=== PATIENT | female | born 1975 | race Caucasian/White ===

== ENCOUNTER 2019-11-09 19:11 | Emergency (ER) | payer MEDICAID ==
[~2019-11-09] VITALS: Ht 157.5 cm; Wt 68.0 kg
[2019-11-09 19:15] VITALS: BP_SYST 133
--- NOTE | 2019-11-09 19:15 | NUR ---
Patient triaged and placed in waiting room. VSS and patient appears in no acute distress at this time. Accompanied by FAM MEMBER, awaiting available bed, and MD notified of need for MSE.
--- NOTE | 2019-11-09 20:23 | NUR ---
Patient to ER bed 6 to gown for evaluation. Side rails up. Report given to Rose PAGAN.
--- NOTE | 2019-11-09 20:25 | NUR ---
PT IS ALERT AND ORIENTED. PT C/O COUGH X 5 DAYS, DENIES PAIN, BODYACHES ,N, V, ABD PAIN AT THIS TIME. VSS. WILL CONTINUE TO MONITOR.
--- NOTE | 2019-11-09 20:34 | NUR ---
ER MD PATHAK AT BEDSIDE EXAMINING PATIENT.
[2019-11-09 21:02] LABS: BASOPHILS % (AUTO) 0.6 % (0.0-2.0); EOSINOPHILS # (AUTO) 0.3 K/uL (0.0-0.4); EOSINOPHILS % (AUTO) 3.4 % (0.0-4.0); HEMATOCRIT 26.9 % (36-48); HEMOGLOBIN 8.4 g/dL (12.0-16.0); LYMPHOCYTES # (AUTO) 1.4 K/uL (1.0-5.5); LYMPHOCYTES % (AUTO) 18.1 % (20.5-51.5); MEAN CORPUSCULAR HEMOGLOBIN 20 pg (27-31); MEAN CORPUSCULAR HGB CONC 31 % (32-36); MEAN CORPUSCULAR VOLUME 64 fL (79.0-98.0); MONOCYTES # (AUTO) 0.6 K/uL (0.0-1.0); MONOCYTES % (AUTO) 7.8 % (1.7-9.3); NEUTROPHILS # (AUTO) 5.4 K/uL (1.8-7.7); NEUTROPHILS % (AUTO) 70.1 % (40.0-70.0); PLATELET COUNT (AUTO) 364 K/uL (130-430); RED BLOOD CELL COUNT(AUTO) 4.22 MIL/uL (4.2-6.2); RED CELL DISTRIBUTION WIDTH 19.2 % (9.0-15.0); WHITE BLOOD COUNT (AUTO) 7.7 K/uL (4.8-10.8)
[2019-11-10 00:50] VITALS: BP_SYST 130
--- NOTE | 2019-11-10 00:50 | NUR ---
Patient given written and verbal discharge instructions and verbalizes understanding. ER MD discussed with patient the results and treatment provided. Patient in stable condition. ID arm band removed. No IV Rx of Cheratussin and Zithromax given. Patient educated on pain management and to follow up with PMD. Pain Scale 0/10. Opportunity for questions provided and answered. Medication side effect fact sheet provided.
== END 2019-11-10 00:50 | disposition home or self-care (01) ==
LOC: SED 19:11
DX: J40 Bronchitis, not specified as acute or chronic (principal); Z88.0 Allergy status to penicillin
CPT/HCPCS: 36415; 71045; 85025; 86710; 99284

== ENCOUNTER 2021-10-19 14:10 | Emergency (ER) | payer MEDICAID ==
[~2021-10-19] VITALS: Ht 157.5 cm; Wt 63.5 kg
[2021-10-19 14:15] VITALS: BP_SYST 109
--- NOTE | 2021-10-19 14:24 | NUR ---
sent to [facility]
[2021-10-19] MEDS ORDERED: CEPH-548 PO (15:16)
--- NOTE | 2021-10-19 15:45 | NUR ---
examined by dr. anthony
--- NOTE | 2021-10-19 16:05 | NUR ---
Patient given written and verbal discharge instructions and verbalizes understanding. ER MD discussed with patient the results and treatment provided. Patient in stable condition. ID arm band removed. Rx of keflex given. Patient educated on pain management and to follow up with PMD. Pain Scale 0/10. Opportunity for questions provided and answered. Medication side effect fact sheet provided.
[2021-10-19 16:09] VITALS: BP_SYST 109
== END 2021-10-19 16:05 | disposition home or self-care (01) ==
LOC: SED 14:10
DX: T21.12XA Burn of first degree of abdominal wall, initial encounter (principal); L03.311 Cellulitis of abdominal wall; Z88.0 Allergy status to penicillin; Z79.899 Other long term (current) drug therapy; X19.XXXA Contact with other heat and hot substances, initial encounter; Y93.89 Activity, other specified; Y92.89 Other specified places as the place of occurrence of the external cause; Y99.8 Other external cause status
CPT/HCPCS: 99283

== ENCOUNTER 2021-12-18 16:59 | Emergency (ER) | payer SELFPAY ==
[~2021-12-18] VITALS: Ht 157.5 cm; Wt 68.0 kg
[~2021-12-18 16:59] MED LIST: CEPH-548 PO
[2021-12-18 17:00] VITALS: BP_SYST 106
--- NOTE | 2021-12-18 17:00 | NUR ---
Patient triaged and placed in waiting room. VSS and patient appears in no acute distress at this time. Accompanied by SELF, awaiting available bed, and MD notified of need for MSE.
--- NOTE | 2021-12-18 19:40 | NUR ---
Pt brought self in from home due to chest discomfort accompanied by SOB x3 days. Pt states she gets SOB while going up and down the stairs. She also reports L ear ache that started x2 days ago. Denies any medical history. Appears in no distress at this time. o2 sat @ 100 % on RA. VSS stable.
[2021-12-18] MEDS ORDERED: LORA10TA7 PO (20:17)
[2021-12-18] MEDS ORDERED: IBUP-1969 PO (20:17)
[2021-12-18] MEDS ORDERED: AZIT-93 PO (20:17)
[2021-12-18 20:24] VITALS: BP_SYST 110
--- NOTE | 2021-12-18 20:26 | NUR ---
Patient given written and verbal discharge instructions and verbalizes understanding. ER MD [place] discussed with patient the results and treatment provided. Patient in stable condition. ID arm band removed. Rx of Azithromycin, Ibuprofen, and loratadine sent to pharmacy of choice. Patient educated on pain management and to follow up with PMD. Opportunity for questions provided and answered. Medication side effect fact sheet provided.
== END 2021-12-18 20:24 | disposition home or self-care (01) ==
LOC: SED 16:59
DX: H65.192 Other acute nonsuppurative otitis media, left ear (principal); J32.9 Chronic sinusitis, unspecified; Z88.0 Allergy status to penicillin; Z88.8 Allergy status to other drugs, medicaments and biological substances; Z79.899 Other long term (current) drug therapy
CPT/HCPCS: 99283